=== PATIENT | male | born 1995 | race Hispanic/Latino ===

== ENCOUNTER 2019-08-04 20:57 | Emergency (ER) | payer OTHER ==
[~2019-08-04] VITALS: Ht 182.9 cm; Wt 97.5 kg
[2019-08-04 22:48] LABS: BASOPHILS # (AUTO) 0.1 (0.0-0.1); BASOPHILS % 0.6 % (0.0-1.0); EOSINOPHILS # (AUTO) 0.1 (0.0-0.4); EOSINOPHILS % 0.7 % (0.0-6.0); HEMATOCRIT 44.9 % (38.2-49.6); HEMOGLOBIN 15.7 g/dL (14.0-18.0); LYMPHOCYTES # (AUTO) 2.3 (1.0-3.2); LYMPHOCYTES % 16.9 % (18.0-39.1); MEAN CORPUSCULAR HEMOGLOBIN 30.4 pg (28-32); MEAN CORPUSCULAR VOLUME 86.8 fL (81-99); MONOCYTES % 7.4 % (4.4-11.3); NEUTROPHILS # (AUTO) 10.1 (2.1-6.9); NEUTROPHILS % 73.6 % (38.7-80.0); PLATELET COUNT 252 x10e3/uL (140-360); RED BLOOD COUNT 5.17 x10e6/uL (4.3-5.7); RED CELL DISTRIBUTION WIDTH 13.1 % (11.7-14.4)
[2019-08-04 23:13] LABS: ALANINE AMINOTRANSFERASE 43 IU/L (0-55); ALBUMIN 4.5 g/dL (3.5-5.0); ALBUMIN/GLOBULIN RATIO 1.4 (0.8-2.0); ALKALINE PHOSPHATASE 78 IU/L (40-150); ANION GAP 15.1 mmol/L (8-16); BLOOD UREA NITROGEN 8 mg/dL (7-26); BUN/CREATININE RATIO 9 (6-25); CALCIUM 9.9 mg/dL (8.4-10.2); CARBON DIOXIDE 22 mmol/L (22-29); CHLORIDE 105 mmol/L (98-107); CREATINE KINASE 204 IU/L (30-200); CREATININE, SERUM 0.89 mg/dL (0.72-1.25); EST GLOMERULAR FILTRATION RATE > 60 ML/MIN (60-); GLUCOSE 99 mg/dL (74-118); POTASSIUM 3.1 mmol/L (3.5-5.1); SODIUM 139 mmol/L (136-145)
--- NOTE | 2019-08-04 23:23 | Diagnostic Imaging Report ---
History: Syncopal episode Comparison studies: None Technique: Axial images were obtained from the skull base to the vertex. Coronal and sagittal reconstructions obtained from the axial data. Dose modulation, iterative reconstruction, and/or weight based adjustment of the mA/kV was utilized to reduce the radiation dose to as low as reasonably achievable. Findings: Scalp/skull: No abnormalities. No fractures, blastic or lytic lesions. Extra-axial spaces: No masses. No fluid collections. Brain sulci: Appropriate for age. Ventricles: Normal in size and configuration. No hydrocephalus. Parenchyma: No abnormal densities. No masses, hemorrhage, acute or chronic cortical vascular insults. Sellar/suprasellar region: No abnormalities Craniocervical junction: Patent foramen magnum. No Chiari one malformation. IMPRESSION: No abnormalities . Signed by: DR Rigo Fraga M.D. on 08/04/2019 11:20 PM
[2019-08-05 00:02] LABS: AMPHETAMINES SCREEN,URINE NEGATIVE (NEGATIVE); BENZODIAZEPINES SCREEN,URINE POSITIVE (NEGATIVE); CLARITY,URINE CLOUDY (CLEAR); COLOR,URINE YELLOW (YELLOW); KETONES,URINE NEGATIVE (NEGATIVE); LEUKOCYTE ESTERASE ,URINE NEGATIVE (NEGATIVE); NITRITE,URINE NEGATIVE (NEGATIVE); PHENCYCLIDINE SCREEN,URINE NEGATIVE (NEGATIVE); PROTEIN,URINE DIPSTICK 1+ (NEGATIVE)
[2019-08-05 00:03] LABS: BILIRUBIN,URINE NEGATIVE (NEGATIVE); URINE UROBILINOGEN 0.2 mg/dL (0.2 - 1)
[2019-08-05 00:49] LABS: WBC,URINE (MAN) 21-50 /HPF (0-5)
[2019-08-05 00:50] LABS: BACTERIA,URINE FEW /HPF; EPITHELIAL CELLS,URINE FEW /LPF; MUCUS,URINE MANY (RARE)
--- NOTE | 2019-08-05 00:57 | NUR ---
PT BROUGHT TO TRIAGE TO REASSESS V/S AND DISCUSS POC/DC INSTRUCTIONS; FOLLOWING V/S, PT BEGAN TO ACTIVELY SEIZE FOR APPROX 1 MINUTE, ASSISTED TO FLOOR BY ED STAFF AND PLACED ON SIDE; ER MD IN TRIAGE, ADMINISTERED ATIVAN 2MG IVP PER MD ORDERS; PT POSTICTAL AFTER SEIZURE; PT ASSISTED TO STRETCHER AND TAKEN TO RM #10
[2019-08-05] MEDS ORDERED: LORAZEPAM INJ 2 MG/ML VIAL IV ONE (01:00)
[2019-08-05] MEDS ORDERED: LORAZEPAM INJ 2 MG/ML VIAL ONE (01:00)
--- NOTE | 2019-08-05 01:17 | NUR ---
PT [id number] AT THIS TIME; PT SISTER AT BEDSIDE STATES, "HE ALWAYS TAKES XANAX AND HE TOLD ME EARLIER THAT HE HAS NOT HAD ANY (XANAX) TO TAKE IN 2 DAYS." ER MD TO BS; PT ADMITS TO TAKING XANAX DAILY AND HAS NOT TAKEN ANY X2 DAYS. ER MD INFORMED PT OF NEED TO DISCLOSE MEDICATION HX WHEN ASKED, PT VERBALIZED UNDERSTANDING
--- NOTE | 2019-08-05 02:21 | NUR ---
pt awake and alert. answers questions appropriately. md states that pt can be discharged home at this time. pt instructed on importance of taking rx medication. family instructed on seizure precautions. pt ambulatory, left er c family at this time.
== END 2019-08-05 02:27 | disposition home or self-care (01) ==
LOC: ER 20:57
DX: R55 Syncope and collapse (principal); F17.210 Nicotine dependence, cigarettes, uncomplicated
CPT/HCPCS: 36415; 70450; 80053; 80307; 81001; 82550; 82553; 84484; 85025; 93005; 99283; J2060